=== PATIENT | male | born 1970 | race Caucasian/White ===

== ENCOUNTER 2017-03-17 15:26 | Emergency (ER) | payer OTHER, BC ==
--- NOTE | 2017-03-17 17:48 | EDM.PDOC ---
ED HPI GENERAL MEDICAL PROBLEM - General Chief Complaint: Lower Extremity Injury/Pain Stated Complaint: HURT RT ANKLE Time Seen by Provider: 03/17/17 17:43 Source of Information: Reports: Patient - History of Present Illness INITIAL COMMENTS - FREE TEXT/NARRATIVE: HISTORY AND PHYSICAL: History of present illness: [Patient presents with history of a fall off a ladder straight down to his feet complains of right ankle pain 8 out of 10 with weightbearing 1 out of 10 with nonweightbearing No fever nausea vomiting chills sweats no head injury or loss of consciousness no other injury History of diabetes on insulin Review of systems: As per history of present illness and below otherwise all systems reviewed and negative. Past medical history: As per history of present illness and as reviewed below otherwise noncontributory. Surgical history: As per history of present illness and as reviewed below otherwise noncontributory. Social history: No reported history of drug or alcohol abuse. Family history: As per history of present illness and as reviewed below otherwise noncontributory. Physical exam: HEENT: Atraumatic, normocephalic, pupils reactive, negative for conjunctival pallor or scleral icterus, mucous membranes moist, throat clear, neck supple, nontender, trachea midline. Lungs: Clear to auscultation, breath sounds equal bilaterally, chest nontender. Heart: S1S2, regular, negative for clicks, rubs, or JVD. Abdomen: Soft, nondistended, nontender. Negative for masses or hepatosplenomegaly. Negative for costovertebral tenderness. Pelvis: Stable nontender. Genitourinary: Deferred. Rectal: Deferred. Extremities: Atraumatic, negative for cords or calf pain. Neurovascular unremarkable. Neuro: Awake, alert, oriented. Cranial nerves II through XII unremarkable. Cerebellum unremarkable. Motor and sensory unremarkable throughout. Exam nonfocal. Right lower extremity mild to moderate swelling entirely neurovascularly intact pulses 2+ bruising around the ankle wave bruising at this time Diagnostics: []Right ankle 3 views Right foot 3 views Therapeutics: []CAM boot crutches nonweightbearing Discussed with Dr. Rust podiatry he'll see the patient in the office and redirected treatment and/ or calf consideration etc. have spoken with Dr. Mays LC him in his office initially patient will go directly over the Dr. Casper's office and redirected from there Impression: [Right calcaneus fracture comminuted with intra-articular involvement No open lesion Neurovascularly intact] Definitive disposition and diagnosis as appropriate pending reevaluation and review of above. right ankle Pain Score (Numeric/FACES): 6 - Related Data Allergies Allergy/AdvReac Type Severity Reaction Status Date / Time No Known Allergies Allergy Verified 03/17/17 16:09 Home Meds: Home Meds Insulin Npl/Insulin Lispro [Humalog Mix 75-25 Kwikpen] 1 unit SUBCUT ASDIRECTED 03/17/17 [History] Levothyroxine 3 mcg PO DAILY 03/17/17 [History] Rosuvastatin Calcium [Crestor] 1 tab PO DAILY 03/17/17 [History] Past Medical History Cardiovascular History: Reports: High Cholesterol Endocrine/Metabolic History: Reports: Diabetes, Type II, Hypothyroidism - Infectious Disease History Infectious Disease History: Reports: Chicken Pox - Past Surgical History Endocrine Surgical History: Reports: Other (See Below) Other Endocrine Surgeries/Procedures: abcess on stomach Social & Family History - Family History Family Medical History: Noncontributory - Tobacco Use Smoking Status *Q: Never Smoker - Alcohol Use Days Per Week of Alcohol Use: 1 Number of Drinks Per Day: 5 Total Drinks Per Week: 5 - Recreational Drug Use Recreational Drug Use: No Review of Systems - Review of Systems Review Of Systems: ROS reveals no pertinent complaints other than HPI. ED EXAM, GENERAL - Physical Exam Exam: See Below Course - Vital Signs Last Recorded V/S: Last Vital Signs Temp 97.5 F 03/17/17 16:12 Pulse 87 03/17/17 16:12 Resp 18 03/17/17 16:12 BP 158/98 H 03/17/17 16:12 Pulse Ox 99 03/17/17 16:12 - Orders/Labs/Meds Orders: Active Orders 24 hr Category Date Time Status Ankle Min 3V Rt [CR] Stat Exams 03/17/17 16:17 Taken Foot Comp Min 3V Rt [CR] Stat Exams 03/17/17 16:17 Taken Departure - Departure Time of Disposition: 17:45 Disposition: DC/Tfer to Other 70 Condition: Good Clinical Impression: Calcaneus fracture, right - Discharge Information Referrals: PCP,None [Primary Care Provider] - Additional Instructions: Patient discharged/transferred directly to Dr. Olmedo' office proceed directly over to the [facility] where Dr. rust is expecting you Being temporarily being placed in a walking boot do not put weight on the boot stepped directly on your foot Crutches and nonweightbearing Again proceed directly over Dr. Rust's office as he is expecting you and he will redirect treatment from there - My Orders Last 24 Hours: My Active Orders 03/17/17 16:17 Ankle Min 3V Rt [CR] Stat Foot Comp Min 3V Rt [CR] Stat - Assessment/Plan Last 24 Hours: My Active Orders 03/17/17 16:17 Ankle Min 3V Rt [CR] Stat Foot Comp Min 3V Rt [CR] Stat
--- NOTE | 2017-03-18 15:12 | CR ---
EXAM DATE: 03/17/17 PATIENT'S AGE: 47 Patient: BENTLEY RAMIREZ Facility: [place], [place] Site . Site : 1970 Study: XRay Extremity Right foot [id number] 4:42:58 PM Ordering Physician: Doctor Ireland Final Report: Indication: Fall. Technique: Right foot three views. Comparison: Right ankle same day. Findings: There is a comminuted mildly impacted intra-articular fracture of the calcaneus. No additional fracture demonstrated. Degenerative changes of the tibiotalar joint and 1st metatarsophalangeal joint. Calcaneal enthesopathy. Impression: Comminuted mildly impacted intra-articular fracture of the calcaneus. Dictated by Alvino Candelario MD @ 03/17/2017 5:03:05 PM Dictated by: Alvino Candelario MD @ 03/17/2017 17:03:14 (Electronic Signature) Report Signed by Proxy. SOPHIA
--- NOTE | 2017-03-18 15:12 | CR ---
EXAM DATE: 03/17/17 PATIENT'S AGE: 47 Patient: BENTLEY RAMIREZ Facility: [place], [place] Site . Site : 1970 Study: XRay Extremity Right ankle [id number]/18/[id number] 4:43:23 PM Ordering Physician: Doctor Ireland Final Report: Indication: Fall. Technique: Right ankle three views. Comparison: Right foot same day. Findings: There is a comminuted mildly impacted intra-articular fracture of the calcaneus. No additional fracture demonstrated. Degenerative changes of the tibiotalar joint. Soft tissue swelling about the ankle. Impression: Comminuted mildly impacted intra-articular fracture of the calcaneus. Dictated by Alvino Candelario MD @ 03/17/2017 5:04:31 PM Dictated by: Alvino Candelario MD @ 03/17/2017 17:04:42 (Electronic Signature) Report Signed by Proxy. SOPHIA
== END 2017-03-17 18:00 | disposition other institution (70) ==
LOC: MW.ED 15:26
DX: S92.061A Displaced intraarticular fracture of right calcaneus, initial encounter for closed fracture (principal); E11.9 Type 2 diabetes mellitus without complications; E78.00 Pure hypercholesterolemia, unspecified; Z79.4 Long term (current) use of insulin; Z79.899 Other long term (current) drug therapy; W11.XXXA Fall on and from ladder, initial encounter
CPT/HCPCS: 73610-26-RT; 73610-RT; 73630-26-RT; 73630-RT; 99283

== ENCOUNTER 2017-04-04 11:21 | Observation (INO) | payer OTHER, BC ==
[~2017-04-04 11:21] MED LIST: Bupivacaine 0.5% 30 ML SDV ONE; Lactated Ringers 1,000 ML IV SCH; Lidocaine 1% 20 ML MDV ONE
[2017-04-04] MEDS ORDERED: ceFAZolin 2 GM in Premix Bag 1 BAG IV ONE (11:24)
[2017-04-04] MEDS ORDERED: Dexamethasone 4 MG/ML 5 ML MDV ONE (11:36)
[2017-04-04] MEDS ORDERED: Ondansetron 4 MG/2 ML SDV ONE (11:36)
[2017-04-04] MEDS ORDERED: Midazolam 1 MG/ML 2 ML SDV ONE (11:36)
[2017-04-04] MEDS ORDERED: Propofol 200 MG/20 ML SDV ONE ×2 (11:36→16:32)
[2017-04-04] MEDS ORDERED: diphenhydrAMINE 50 MG/ML SDV ONE (11:36)
[2017-04-04] MEDS ORDERED: fentaNYL 250 MCG/5 ML SDV ONE (11:37)
--- NOTE | 2017-04-04 12:19 | PCM.PREANE ---
Preanesthetic Assessment - Anesthesia/Transfusion/Family Hx Anesthesia History: Prior Anesthesia Without Reaction Family History of Anesthesia Reaction: No Transfusion History: No Prior Transfusion(s) - Review of Systems General: No Symptoms Pulmonary: No Symptoms Cardiovascular: No Symptoms Gastrointestinal: No Symptoms Neurological: No Symptoms Other: Reports: None - Physical Assessment NPO Status Date: 04/03/17 O2 Sat by Pulse Oximetry: 95 Respiratory Rate: 16 Vital Signs: Last Vital Signs Temp 37.2 C 04/04/17 11:45 Pulse 90 04/04/17 11:45 Resp 16 04/04/17 11:45 BP 126/76 04/04/17 11:45 Pulse Ox 95 04/04/17 11:45 Height: 1.78 m Weight: 129.274 kg ASA Class: 3 Airway Class: Mallampati = 1 Dentition: Reports: Normal Dentition ROM/Head Extension: Full Lungs: Clear to Auscultation, Normal Respiratory Effort Cardiovascular: Regular Rate, Regular Rhythm - Allergies Allergies/Adverse Reactions: Allergies Allergy/AdvReac Type Severity Reaction Status Date / Time No Known Allergies Allergy Verified 03/17/17 16:09 - Anesthesia Plan Pre-Op Medication Ordered: None - Acknowledgements Anesthesia Type Planned: General Anesthesia Pt an Appropriate Candidate for the Planned Anesthesia: Yes Alternatives and Risks of Anesthesia Discussed w Pt/Guardian: Yes Pt/Guardian Understands and Agrees with Anesthesia Plan: Yes Additional Comments: PMH: DM1 on basal insulin pump, gets boluses of reg insulin with meals. glucose 127 at 1215. HTN, HLD, thyroid replacement. Off seizure meds x 3 years. Will check glucose during surgery hourly and add low glucose infusion as needed. PreAnesthesia Questionnaire Cardiovascular History: Reports: High Cholesterol Musculoskeletal History: Reports: Other (See Below) Other Musculoskeletal History: presently has fx rt foot Neurological History: Reports: Seizure Endocrine/Metabolic History: Reports: Diabetes, Type I, Hypothyroidism - Infectious Disease History Infectious Disease History: Reports: Chicken Pox - Past Surgical History Head Surgeries/Procedures: Reports: None Male Surgical History: Reports: Other (See Below) Other Male Surgeries/Procedures: hx prostate bx Endocrine Surgical History: Dermatological Surgical History: Reports: Other (See Below) - SUBSTANCE USE Smoking Status *Q: Never Smoker Days Per Week of Alcohol Use: 1 Number of Drinks Per Day: 5 Total Drinks Per Week: 5 Recreational Drug Use History: No - HOME MEDS Home Medications: Home Meds Insulin Npl/Insulin Lispro [Humalog Mix 75-25 Kwikpen] 1 unit SUBCUT ASDIRECTED 03/17/17 [History] Rosuvastatin Calcium [Crestor] 40 mg PO DAILY 03/17/17 [History] Aspirin [[place] Aspirin] 81 mg PO DAILY 04/03/17 [History] Levothyroxine Sodium 300 mcg PO DAILY 04/03/17 [History] Multivitamin [Multivitamins] 1 tab PO BEDTIME 04/03/17 [History] - CURRENT (IN HOUSE) MEDS Current Meds: Current Medications Lactated Ringer's (Ringers, Lactated) 1,000 mls @ 100 mls/hr IV ASDIRECTED TRISTAN Discontinued Medications Bupivacaine HCl (Marcaine 0.5%) Confirm Administered Dose 30 ml .ROUTE .STK-MED ONE Stop: 04/04/17 07:22 Dexamethasone (Dexamethasone) Confirm Administered Dose 20 mg .ROUTE .STK-MED ONE Stop: 04/04/17 11:37 Diphenhydramine HCl (Benadryl) Confirm Administered Dose 50 mg .ROUTE .STK-MED ONE Stop: 04/04/17 11:37 Fentanyl (Sublimaze) Confirm Administered Dose 250 mcg .ROUTE .STK-MED ONE Stop: 04/04/17 11:38 Cefazolin Sodium/Dextrose 2 gm (/ Premix) 50 mls @ 100 mls/hr IV ONETIME ONE Stop: 04/04/17 11:53 Lidocaine HCl (Xylocaine 1%) Confirm Administered Dose 20 ml .ROUTE .STK-MED ONE Stop: 04/04/17 07:22 Midazolam HCl (Versed 1 Mg/Ml) Confirm Administered Dose 2 mg .ROUTE .STK-MED ONE Stop: 04/04/17 11:37 Ondansetron HCl (Zofran) Confirm Administered Dose 4 mg .ROUTE .STK-MED ONE Stop: 04/04/17 11:37 Propofol (Diprivan 20 Ml) Confirm Administered Dose 200 mg .ROUTE .STK-MED ONE Stop: 04/04/17 11:37
[2017-04-04] MEDS ORDERED: Succinylcholine/Normal Saline 200 MG/10 ML Syringe ONE (12:48)
[2017-04-04] MEDS ORDERED: Rocuronium 10 MG/ML 10 ML Syringe ONE (12:48)
--- NOTE | 2017-04-04 13:53 | PN ---
CONTINUATION: In continuing with labs, PTT was 23 on 03/27/2017. Prothrombin time 8.7, INR 0.9. White blood cell 8.0, red blood cells 5.17, hemoglobin 15.1, hematocrit 42.1, platelets 308. Urinalysis was unremarkable. Glucose 75, creatinine 0.96, BUN 21.0, sodium 140.1, potassium 4.2, chloride 101.3, CO2 of 26.1, calcium 9.10. Also the patient's most recent glucose check done on last treatment was approximately 100. Chest x-ray showed no radiographic evidence of an acute cardiopulmonary process. EKG showed sinus rhythm, rapid. The patient presents for open reduction with internal fixation as a surgery for a displaced intra-articular calcaneal fracture on the right foot today. No contraindications to surgery noted. No guarantees were given or implied and an effort has been made to thoroughly discuss likelihood and the potential complications with the patient and with his . ANAYA / AMRITA /[id number]
[2017-04-04] MEDS ORDERED: HYDROmorphone 2 MG/ML Syringe ONE ×2 (14:18→17:13)
[2017-04-04] MEDS ORDERED: ceFAZolin 1 GM Vial ONE (18:43)
--- NOTE | 2017-04-04 20:21 | PCM.OPNOTE ---
- General Post-Op/Procedure Note Date of Surgery/Procedure: 04/04/17 Operative Procedure(s): ORIF calcanceal fracture right foot Findings: consistent with diagnosis Pre Op Diagnosis: displaced intraarticular calcaneal fracture right foot Post-Op Diagnosis: displaced intraarticular calcaneal fracture right foot Anesthesia Technique: General LMA Primary Surgeon: Alexander Red Pathology: none EBL in mLs: 200 Surgical Drain/Tube Type: Franca Complications: none Condition: Good Free Text/Narrative:: materials: 3-0 nylon, 4-0 prolene, 40 vicryl, Amniox Clarix regenerative wound matrix, [place] calcaneal plate, Hilary locking and nonlocking screws x 8 injectables: 10 ml 0.5% Marcaine plain
[2017-04-04] MEDS ORDERED: fentaNYL 100 MCG/2 ML SDV IVPUSH PRN (20:22)
[2017-04-04] MEDS ORDERED: Multivitamins with Iron/Calcium/Folic Acid/Minerals Tab PO SCH (21:00)
[2017-04-04] MEDS ORDERED: Insulin Lispro Protamine/Lispro 75-25 100 Units/ML 3 ML KwikPen SUBCUT SCH (21:00)
[2017-04-04] MEDS ORDERED: Rosuvastatin 10 MG Tab PO SCH (21:00)
[2017-04-04] MEDS ORDERED: Ondansetron 4 MG/2 ML SDV IVPUSH PRN (21:12)
[2017-04-04] MEDS ORDERED: Magnesium Hydroxide 400 MG/5 ML Susp 30 ML Cup PO PRN (21:12)
[2017-04-04] MEDS ORDERED: Acetaminophen 325 MG Tab PO PRN (21:12)
[2017-04-04] MEDS ORDERED: Ondansetron 4 MG Tab.DIS PO PRN (21:12)
--- NOTE | 2017-04-04 21:23 | PCM.HP ---
H&P History of Present Illness - General Date of Service: 04/04/17 Admit Problem/Dx: Admission Diagnosis/Problem Admission Diagnosis/Problem Fracture of calcaneus Source of Information: Patient, Provider History Limitations: Reports: No Limitations - History of Present Illness Initial Comments - Free Text/Narative: 47 yo male admitted 04/04/16 for calcaneal fracture post op with pmh of type I diabetes, htn, hyperlipidemia, hypothyroidism and bph. Patient had a calcaneal fx repaired this evening by Dr. Red. He will need to be observed overnight and Dr. Red will see him tomorrow evening. Patient seen in PACU. Denies any pain at this time. Denies chest pain, palpitations, sob, nausea, vomiting, diarrhea. Otherwise doing well. He is a type I diabetic diagnosed in the early . He does have an insulin pump that he uses to regulate his sugars. He also has a history of htn, hyperlipidemia, and hypothyroidism that he states has been well controlled. Will admit for observation. He is non weightbearing. - Related Data Allergies/Adverse Reactions: Allergies Allergy/AdvReac Type Severity Reaction Status Date / Time No Known Allergies Allergy Verified 03/17/17 16:09 Home Medications: Home Meds Insulin Npl/Insulin Lispro [Humalog Mix 75-25 Kwikpen] 1 unit SUBCUT ASDIRECTED 03/17/17 [History] Rosuvastatin Calcium [Crestor] 40 mg PO DAILY 03/17/17 [History] Aspirin [[place] Aspirin] 81 mg PO DAILY 04/03/17 [History] Levothyroxine Sodium 300 mcg PO DAILY 04/03/17 [History] Multivitamin [Multivitamins] 1 tab PO BEDTIME 04/03/17 [History] Past Medical History Cardiovascular History: Reports: High Cholesterol Musculoskeletal History: Reports: Other (See Below) Other Musculoskeletal History: presently has fx rt foot Neurological History: Reports: Seizure Endocrine/Metabolic History: Reports: Diabetes, Type I, Hypothyroidism - Infectious Disease History Infectious Disease History: Reports: Chicken Pox - Past Surgical History Head Surgeries/Procedures: Reports: None Male Surgical History: Reports: Other (See Below) Other Male Surgeries/Procedures: hx prostate bx Endocrine Surgical History: Dermatological Surgical History: Reports: Other (See Below) Social & Family History - Family History Family Medical History: Noncontributory - Tobacco Use Smoking Status *Q: Never Smoker - Alcohol Use Days Per Week of Alcohol Use: 1 Number of Drinks Per Day: 5 Total Drinks Per Week: 5 - Recreational Drug Use Recreational Drug Use: No Drug Use in Last 12 Months: No H&P Review of Systems - Review of Systems: Review Of Systems: See Below General: Denies: Fever, Chills, Weakness HEENT: Denies: Headaches, Sore Throat Pulmonary: Denies: Shortness of Breath, Wheezing, Cough, Sputum Cardiovascular: Denies: Chest Pain, Palpitations, Edema Gastrointestinal: Denies: Abdominal Pain, Black Stool, Bloody Stool, Diarrhea, Nausea, Vomiting Genitourinary: Denies: Dysuria, Hematuria Musculoskeletal: Reports: Foot Pain. Denies: Neck Pain, Leg Pain Psychiatric: Denies: Confusion Neurological: Denies: Confusion, Dizziness, Headache Hematologic/Lymphatic: Denies: Anemia Exam - Exam Exam: See Below - Vital Signs Vital Signs: Last Vital Signs Temp 99.0 F 04/04/17 11:45 Pulse 90 04/04/17 11:45 Resp 16 04/04/17 12:19 BP 126/76 04/04/17 11:45 Pulse Ox 95 04/04/17 12:19 Weight: 129.274 kg - Exam Quality Assessment: Supplemental Oxygen, DVT Prophylaxis General: Alert, Oriented, Cooperative HEENT: Conjunctiva Clear, EACs Clear, EOMI, Hearing Intact, Mucosa Moist & [place] , Nares Patent, Normal Nasal Septum, Posterior Pharynx Clear, PERRLA Neck: Supple, Trachea Midline, 2 Lungs: Clear to Auscultation, Normal Respiratory Effort Cardiovascular: Regular Rate, Regular Rhythm, Normal S1, Normal S2 GI/Abdominal Exam: Normal Bowel Sounds, Soft, Non-Tender, No Organomegaly, No Distention, No Abnormal Bruit, No Mass Back Exam: Normal Inspection Extremities: Normal Inspection, Normal Range of Motion, Non-Tender, No Pedal Edema, Normal Capillary Refill, Other (Post surgical dressing in place to right lower extremity) Peripheral Pulses: 2+: Radial (L), Radial (R), Posterior Tibial (L), Dorsalis Pedis (L) Skin: Warm, Dry, Intact Neurological: Cranial Nerves Intact, Reflexes Equal Bilateral Neuro Extensive - Mental Status: Alert, Oriented x3, Normal Mood/Affect, Normal Cognition Neuro Extensive - Motor, Sensory, Reflexes: CN II-XII Intact Psychiatric: Alert, Normal Affect, Normal Mood - Patient Data Lab Results Last 24 hrs: Laboratory Results - last 24 hr 04/04/17 04/04/17 04/04/17 Range/Units 14:44 15:46 16:55 POC Glucose 90 130 H 193 H (60-110) mg/dL 04/04/17 04/04/17 04/04/17 Range/Units 18:15 19:59 21:02 POC Glucose 224 H 268 H 278 H (60-110) mg/dL *Q Meaningful Use (ADM) - VTE *Q VTE Criteria *Q: - Stroke *Q Stroke Criteria *Q: - AMI *Q AMI Criteria *Q: - Problem List (1) Type I diabetes mellitus SNOMED Code(s): 55941136 ICD Code: E10.9 - TYPE 1 DIABETES MELLITUS WITHOUT COMPLICATIONS Status: Chronic Priority: Low Current Visit: Yes Qualifiers: Diabetes mellitus complication status: without complication Qualified Code( s): E10.9 - Type 1 diabetes mellitus without complications (2) HTN (hypertension) SNOMED Code(s): 82715076 ICD Code: I10 - ESSENTIAL (PRIMARY) HYPERTENSION Status: Chronic Priority : Low Current Visit: Yes Qualifiers: Hypertension type: essential hypertension Qualified Code(s): I10 - Essential (primary) hypertension (3) Hyperlipidemia SNOMED Code(s): 91626874 ICD Code: E78.5 - HYPERLIPIDEMIA, UNSPECIFIED Status: Chronic Priority: Low Current Visit: Yes Qualifiers: Hyperlipidemia type: unspecified Qualified Code(s): E78.5 - Hyperlipidemia , unspecified (4) Hypothyroidism SNOMED Code(s): 49966806 ICD Code: E03.9 - HYPOTHYROIDISM, UNSPECIFIED Status: Chronic Priority: Low Current Visit: Yes Qualifiers: Hypothyroidism type: unspecified Qualified Code(s): E03.9 - Hypothyroidism , unspecified (5) Calcaneus fracture, right SNOMED Code(s): 988594202 ICD Code: S92.001A - UNSP FRACTURE OF RIGHT CALCANEUS, INIT FOR CLOS FX Status: Acute Priority: High Current Visit: Yes Qualifiers: Encounter type: initial encounter Fracture type: closed [place] Fracture Type: unspecified configuration Problem List Initiated/Reviewed/Updated: Yes Orders Last 24hrs: Active Orders 24 hr Category Date Time Status Patient Status [ADT] Routine ADT 04/04/17 21:12 Ordered Antiembolic Devices [RC] .Routine Care 04/04/17 11:25 Active Antiembolic Devices [RC] PER UNIT ROUTINE Care 04/04/17 21:17 Ordered Blood Glucose Check, Bedside [RC] TIDAC Care 04/04/17 20:58 Ordered Bradycardia-Neuroaxis [employer] [RC] ROUTINE Care 04/04/17 20:22 Active Hypertension-Neuroaxis [employer] [RC] ROUTINE Care 04/04/17 20:22 Active Hypotension-Neuroaxis [employer] [RC] ROUTINE Care 04/04/17 20:22 Active Intake and Output [RC] QSHIFT Care 04/04/17 21:15 Ordered Notify Provider Consults [RC] ASDIRECTED Care 04/04/17 21:17 Ordered Oxygen Therapy [RC] ASDIRECTED Care 04/04/17 20:22 Active Oxygen Therapy [RC] PRN Care 04/04/17 21:12 Ordered VTE/DVT Education [RC] PER UNIT ROUTINE Care 04/04/17 11:25 Active VTE/DVT Education [RC] PER UNIT ROUTINE Care 04/04/17 21:12 Ordered Verify Patient Consent Obtain [RC] ASDIRECTED Care 04/04/17 11:24 Active Vital Signs [RC] Q4H Care 04/04/17 21:12 Ordered Consult to Physician [CONS] Routine Cons 04/04/17 21:12 Ordered [place] [employer] Diet [DIET] Diet 04/05/17 Breakfast Ordered Fluoro>1Hr [CR] Routine Exams 04/04/17 14:20 Taken BMP [BASIC METABOLIC PANEL,BMP] [CHEM] AM Lab 04/06/17 05:11 Ordered BMP [BASIC METABOLIC PANEL,BMP] [CHEM] AM Lab 04/07/17 05:11 Ordered CBC WITH AUTO DIFF [HEME] AM Lab 04/05/17 05:11 Ordered CBC WITH AUTO DIFF [HEME] AM Lab 04/06/17 05:11 Ordered Acetaminophen [Tylenol] Med 04/04/17 21:12 Ordered 650 mg PO Q4H PRN Acetaminophen/HYDROcodone [[place] 325-5 MG] Med 04/04/17 21:12 Ordered 2 tab PO Q4H PRN Aspirin [Halfprin] Med 04/05/17 09:00 Ordered 81 mg PO DAILY HYDROmorphone [Dilaudid] Med 04/04/17 21:12 Ordered 0.5 mg IVPUSH Q2H PRN Insulin Lispro Prot/Lispro [HumaLOG Mix 75-25] Med 04/04/17 21:00 Ordered 1 unit SUBCUT ASDIRECTED Lactated Ringers [Ringers, Lactated] 1,000 ml Med 04/04/17 08:15 Active IV ASDIRECTED Levothyroxine Sodium [Levothyroxine Sodium] Med 04/05/17 09:00 Ordered 300 mcg PO DAILY Magnesium Hydroxide [Milk of Magnesia] Med 04/04/17 21:12 Ordered 30 ml PO Q12H PRN Multivitamin [Multivitamins] Med 04/04/17 21:00 Ordered 1 tab PO BEDTIME Ondansetron [Zofran ODT] Med 04/04/17 21:12 Ordered 4 mg PO Q4H PRN Ondansetron [Zofran] Med 04/04/17 21:12 Ordered 4 mg IVPUSH Q4H PRN Rosuvastatin Calcium [Crestor] Med 04/05/17 09:00 Ordered 40 mg PO DAILY fentaNYL [Sublimaze] Med 04/04/17 20:22 Active 50 mcg IVPUSH Q5M PRN DVT/VTE Prophylaxis Reflex [OM.PC] Routine Oth 04/04/17 11:24 Ordered Sequential Compression Device [OM.PC] Per Unit Routine Oth 04/04/17 21:15 Ordered Resuscitation Status Routine Resus Stat 04/04/17 11:24 Ordered Medication Orders Aspirin (Halfprin) 81 mg PO DAILY TRISTAN Fentanyl (Sublimaze) 50 mcg IVPUSH Q5M PRN PRN Reason: Pain (severe 7-10) Stop: 04/04/17 23:59 Lactated Ringer's (Ringers, Lactated) 1,000 mls @ 100 mls/hr IV ASDIRECTED TRISTAN Insulin Lispro Protam/Lispro Human (Humalog Mix 75-25) 1 unit SUBCUT ASDIRECTED [facility] Non-Formulary Medication (Levothyroxine Sodium [Levothyroxine Sodium]) 300 mcg PO DAILY [facility] Non-Formulary Medication (Multivitamin [Multivitamins]) 1 tab PO BEDTIME TRISTAN Non-Formulary Medication (Rosuvastatin Calcium [Crestor]) 40 mg PO DAILY [facility] Assessment/Plan Comment:: 47 yo male s/p right calcaneal fx repair with pmh of type I diabetes, htn, hld, hypothyroidism. Calcaneal fx: Dr. Red surgeon. Patient is nonweight bearing. Will have dressing changed by Dr. Red tomorrow evening. Diabetes: Has been controlled. Will have patient resume his normal pump. Htn/Hld: Stable restart home meds. Hypothyroid: Stable restart home meds. VTE: post-surgical SCD Dispo: 1-2 days pending.
--- NOTE | 2017-04-04 21:33 | PCM.POSTAN ---
POST ANESTHESIA ASSESSMENT - MENTAL STATUS Mental Status: Alert, Oriented - VITAL SIGNS Pulse Rate: 108 SaO2: 96 Resp Rate: 14 Blood Pressure: 118/70 Temperature: 98.0 C - RESPIRATORY Respiratory Status: Respiratory Rate WNL, Airway Patent, O2 Saturation Stable, Supplemental Oxygen (O2 nasal cannula) - CARDIOVASCULAR CV Status: Pulse Rate WNL, Blood Pressure Stable - GASTROINTESTINAL GI Status: No Symptoms - PAIN Pain Score: 2 - POST OP HYDRATION Hydration Status: Adequate & Stable
--- NOTE | 2017-04-05 00:40 | OR ---
SURGEON: Alexander Red DPM DATE OF PROCEDURE: 04/04/2017 PREOPERATIVE DIAGNOSIS: Displaced intraarticular calcaneal fracture of the right foot. POSTOPERATIVE DIAGNOSIS: Displaced intraarticular calcaneal fracture of the right foot. OPERATIVE PROCEDURE: Open reduction with internal fixation of calcaneal fracture, right foot. ANESTHESIA: General LMA. HEMOSTASIS: A thigh tourniquet inflated to a pressure of 300 mmHg after an Esmarch bandage exsanguination. TOURNIQUET TIME: Tourniquet time was in two parts, 116 minutes, followed by deflation of the tourniquet for approximately 1 hour and 15 minutes, followed by reinflation for 113 minutes. MATERIALS: [employer] Clarix Cord Regenerative Matrix 3x4 cm, [place] Calcaneus plate, 12 holes, 54 mm length x 1 Hilary 3.5 mm locking screws, T10, 38 mm length x 1, 42 mm length x 1 [place]thington 3.5 mm non-locking screws, T10, 34 mm length x 1, 38 mm length x 3, 42 mm length x 1, 44 mm length x 1 3-0 nylon, 4-0 Prolene, 4-0 Vicryl, INJECTABLES: 10 mL of 0.5% Marcaine plain. PATHOLOGY: None. COMPLICATIONS: None. JUSTIFICATION FOR THE PROCEDURE: The patient was injured on March 17 when he fell from a ladder, which was in the process of falling and he jumped outward and fell down approximately 7 to 8 feet, was transported to the emergency room here in [place] where he was diagnosed with a calcaneal fracture of the right foot. Dr. Finch contacted me from the emergency room and I agreed to see the patient and had the patient brought directly to my office from the emergency room that evening. The patient was placed on crutches and dispensed and placed into a tall walking boot in the emergency room and this is how he presented to me in my office. Due to the edema, which had already become quite significant at that time, I deferred surgical treatment for nearly 3 weeks until today. In the intervening period, the patient was cleared for surgery with no contraindications and I also had patient undergo a lumbar spine x-ray which was negative for fracture as well as contralateral x-ray of his left heel to compare the calcaneus bone and the subtalar joint with the fractured right heel. Additionally, I ordered and the patient underwent a CT scan of the right lower extremity and this was very revealing for Garrison type 2A fracture based on strict interpretation on the coronal and axial views. However, due to fragmentation, this fracture is considered a Garrison type 4. I discussed with the patient and his in detail in my office 2 days ago, the need for surgery, which we all agreed was justified in this case as well as the numerous risks of surgery including, but not limited to wound dehiscence, potential infection up to and including osteomyelitis of the calcaneus and the lower extremity, sural neuritis, sural nerve damage, subtalar joint arthritis which I advised should be considered as inevitable with or without surgery, and related pain. The patient understands that additional surgery may at some point be required, particularly if he experiences painful subtalar joint arthritis. This could lead to further surgery, which could include removal of the hardware being placed and subtalar joint fusion. The patient consented for surgery in writing prior to today's surgery and this was witnessed and placed in the patient's chart. No guarantees have been expressed or implied. DESCRIPTION OF PROCEDURE: The patient was brought to the operating room and placed on the operating table in a supine position at which time anesthesia was induced and the patient was rotated and secured in a lateral decubitus position with the right foot on the superior aspect. The patient was scrubbed and draped in the usual aseptic manner. An incision was planned consisting of a lateral extensile incision line on the lateral side of the right rear foot. The lower extremity was exsanguinated with an Esmarch bandage and the tourniquet was inflated after taking several preoperative x-ray views with C-arm fluoroscopy. Incision was made and carried down directly to bone with care being taken to avoid any neurovascular structures that were visible. The carrying of the incision down to bone was necessary to ensure the highest probability of a viable flap. Dissection was carried superiorly and distally as necessary to expose the lateral calcaneus and the subtalar joint area and extended nearly to the calcaneal cuboid joint. A Hilary calcaneal plate was selected based on fit and set aside and a TransFix screw was placed from lateral to medial exiting via the stab incision on the medial aspect of the right heel. This was necessary to position the posterior tubercle of the calcaneus in a proper position and reduce the varus of the heel due to the fracture as well as to reduce the fragments that originated at the posterior facet. The plate was placed and fixated with olive wire. Two screw holes were made. One screw was inserted. Fluoroscopy and direct examination then confirmed that further plate bending would be necessary. At this time, I removed the hardware, deflated the tourniquet, and proceeded without hemostasis for the next hour and 15 to 20 minutes. After using plate benders and adjusting the plate as needed, the plate was refitted and the screws were reinserted with pre-drilling done in every case followed by measurement and insertion of the screws either locking or nonlocking. Intraoperative fluoroscopy was utilized throughout this portion of the surgery. At the end, all screws were tightened and postoperative x-rays were taken using the C- arm. Once fixation was judged to be achieved as desired, the tourniquet was reinflated and closure commenced. However, prior to closure, the [employer] Clarix Regenerative wound matrix was placed over the calcaneal plate and was secured by suturing it with 4-0 Vicryl suture to the flap over the calcaneus. A Bellbrook drain was placed just prior to closure and that this drain will be removed by me either tomorrow or the day after tomorrow. The flap was then closed using a combination of suture techniques primarily the Donati-Allgower technique as well as horizontal mattress sutures as necessary. 10 mL of 0.5% Marcaine plain was then infiltrated about the site. The site was then prepared for dressings consisting of Betadine-soaked Xeroform gauze, followed by 4 x 4 fluff gauze, Kerlix roll, stockinette, cast padding, and placement of a fiberglass posterior splint which was then secured with multiple Domenico bandages. The tourniquet was deflated just prior to placement of the splint. The patient tolerated the procedure and the anesthesia without complication. However, due to the patient's diabetic condition as well as the length of the procedure and the amount of narcotics the patient has been given, it is determined that he will remain for observation overnight. I will follow the patient while he is in- house. I will see him tomorrow and I am in touch with his as needed. Both the patient and his have my cell phone at any time if they sue JULIEN / AMRITA COUGHLIN: 04/04/2017 20:39:31 /[id number] SOPHIA
[2017-04-05] MEDS: Acetaminophen/HYDROcodone 325-5 MG Tab PO PRN ×4 (01:18→16:07)
[2017-04-05] MEDS: HYDROmorphone 2 MG/ML SDV IVPUSH PRN ×2 (03:30→09:25)
--- NOTE | 2017-04-05 07:04 | PCM.PN ---
- General Info Date of Service: 04/05/17 Admission Dx/Problem (Free Text): Admission Diagnosis/Problem Admission Diagnosis/Problem Fracture of calcaneus Subjective Update: Feeling well this morning. Some numbness to right foot. No nausea/vomiting. Pain controlled. Denies chest pain, palpitations, sob, syncopal episodes. - Review of Systems General: Denies: Fever, Weakness HEENT: Denies: Headaches, Visual Changes Pulmonary: Denies: Shortness of Breath, Cough, Sputum Cardiovascular: Denies: Chest Pain, Palpitations Gastrointestinal: Denies: Abdominal Pain, Nausea, Vomiting Genitourinary: Denies: Dysuria Musculoskeletal: Reports: Leg Pain. Denies: Neck Pain Skin: Denies: Cyanosis Neurological: Denies: Confusion, Dizziness, Headache Psychiatric: Denies: Confusion - Patient Data Vitals - Most Recent: Last Vital Signs Temp 99.2 F 04/04/17 23:54 Pulse 18 L 04/04/17 23:54 Resp 19 04/04/17 23:54 BP 137/68 04/04/17 23:54 Pulse Ox 96 04/04/17 23:54 Weight - Most Recent: 129.274 kg I&O - Last 24 Hours: Intake & Output 04/04/17 04/05/17 04/05/17 22:59 06:59 14:59 Intake Total 1400 250 Output Total 1900 Balance 1400 -1650 Lab Results Last 24 Hours: Laboratory Results - last 24 hr 04/04/17 04/04/17 04/04/17 Range/Units 14:44 15:46 16:55 WBC (4.0-11.0) K/uL RBC (4.50-5.90) M/uL Hgb (13.0-17.0) g/dL Hct (38.0-50.0) % MCV (80.0-98.0) fL MCH (27.0-32.0) pg MCHC (31.0-37.0) g/dL RDW Std Deviation (28.0-62.0) fl RDW Coeff of Abdi (11.0-15.0) % Plt Count (150-400) K/uL MPV (7.40-12.00) fL Neut % (Auto) (48.0-80.0) % Lymph % (Auto) (16.0-40.0) % Haralson % (Auto) (0.0-15.0) % Eos % (Auto) (0.0-7.0) % Baso % (Auto) (0.0-1.5) % Neut # (Auto) (1.4-5.7) K/uL Lymph # (Auto) (0.6-2.4) K/uL Haralson # (Auto) (0.0-0.8) K/uL Eos # (Auto) (0.0-0.7) K/uL Baso # (Auto) (0.0-0.1) K/uL Nucleated RBC % /100WBC Nucleated RBCs # K/uL POC Glucose 90 130 H 193 H (60-110) mg/dL 04/04/17 04/04/17 04/04/17 Range/Units 18:15 19:59 21:02 WBC (4.0-11.0) K/uL RBC (4.50-5.90) M/uL Hgb (13.0-17.0) g/dL Hct (38.0-50.0) % MCV (80.0-98.0) fL MCH (27.0-32.0) pg MCHC (31.0-37.0) g/dL RDW Std Deviation (28.0-62.0) fl RDW Coeff of Abdi (11.0-15.0) % Plt Count (150-400) K/uL MPV (7.40-12.00) fL Neut % (Auto) (48.0-80.0) % Lymph % (Auto) (16.0-40.0) % Haralson % (Auto) (0.0-15.0) % Eos % (Auto) (0.0-7.0) % Baso % (Auto) (0.0-1.5) % Neut # (Auto) (1.4-5.7) K/uL Lymph # (Auto) (0.6-2.4) K/uL Haralson # (Auto) (0.0-0.8) K/uL Eos # (Auto) (0.0-0.7) K/uL Baso # (Auto) (0.0-0.1) K/uL Nucleated RBC % /100WBC Nucleated RBCs # K/uL POC Glucose 224 H 268 H 278 H (60-110) mg/dL 04/05/17 Range/Units 06:21 WBC 11.85 H (4.0-11.0) K/uL RBC 4.74 (4.50-5.90) M/uL Hgb 13.5 (13.0-17.0) g/dL Hct 40.2 (38.0-50.0) % MCV 84.8 (80.0-98.0) fL MCH 28.5 (27.0-32.0) pg MCHC 33.6 (31.0-37.0) g/dL RDW Std Deviation 40.0 (28.0-62.0) fl RDW Coeff of Abdi 13 (11.0-15.0) % Plt Count 246 (150-400) K/uL MPV 9.10 (7.40-12.00) fL Neut % (Auto) 78.1 (48.0-80.0) % Lymph % (Auto) 11.6 L (16.0-40.0) % Haralson % (Auto) 10.2 (0.0-15.0) % Eos % (Auto) 0.0 (0.0-7.0) % Baso % (Auto) 0.1 (0.0-1.5) % Neut # (Auto) 9.3 H (1.4-5.7) K/uL Lymph # (Auto) 1.4 (0.6-2.4) K/uL Haralson # (Auto) 1.2 H (0.0-0.8) K/uL Eos # (Auto) 0.0 (0.0-0.7) K/uL Baso # (Auto) 0.0 (0.0-0.1) K/uL Nucleated RBC % 0.0 /100WBC Nucleated RBCs # 0 K/uL POC Glucose (60-110) mg/dL Med Orders - Current: Current Medications Acetaminophen (Tylenol) 650 mg PO Q4H PRN PRN Reason: Pain (Mild 1-3)/fever Hydrocodone Bitart/Acetaminophen (Rumford 325-5 Mg) 2 tab PO Q4H PRN PRN Reason: Pain (moderate 4-6) Last Admin: 01/06/18 01:18 Dose: 2 tab Aspirin (Halfprin) 81 mg PO DAILY [facility] Hydromorphone HCl (Dilaudid) 0.5 mg IVPUSH Q2H PRN PRN Reason: Pain (severe 7-10) Last Admin: 04/05/17 03:30 Dose: 0.5 mg Lactated Ringer's (Ringers, Lactated) 1,000 mls @ 100 mls/hr IV ASDIRECTED [facility] Insulin Lispro Protam/Lispro Human (Humalog Mix 75-25) 1 unit SUBCUT ASDIRECTED [facility] Levothyroxine Sodium (Synthroid) 300 mcg PO DAILY [facility] Magnesium Hydroxide (Milk Of Magnesia) 30 ml PO Q12H PRN PRN Reason: Constipation Multivitamins/Minerals (Thera M Plus) 1 tab PO BEDTIME [facility] Last Admin: 04/04/17 22:36 Dose: 1 tab Ondansetron HCl (Zofran Odt) 4 mg PO Q4H PRN PRN Reason: nausea, able to take PO Ondansetron HCl (Zofran) 4 mg IVPUSH Q4H PRN PRN Reason: Nausea Rosuvastatin Calcium (Crestor) 40 mg PO BEDTIME [facility] Last Admin: 04/04/17 22:36 Dose: 40 mg Discontinued Medications Bupivacaine HCl (Marcaine 0.5%) Confirm Administered Dose 30 ml .ROUTE .STK-MED ONE Stop: 04/04/17 07:22 Cefazolin Sodium (Ancef) Confirm Administered Dose 2 gm .ROUTE .STK-MED ONE Stop: 04/04/17 18:44 Dexamethasone (Dexamethasone) Confirm Administered Dose 20 mg .ROUTE .STK-MED ONE Stop: 04/04/17 11:37 Diphenhydramine HCl (Benadryl) Confirm Administered Dose 50 mg .ROUTE .STK-MED ONE Stop: 04/04/17 11:37 Fentanyl (Sublimaze) Confirm Administered Dose 250 mcg .ROUTE .STK-MED ONE Stop: 04/04/17 11:38 Fentanyl (Sublimaze) 50 mcg IVPUSH Q5M PRN PRN Reason: Pain (severe 7-10) Stop: 04/04/17 23:59 Hydromorphone HCl (Dilaudid) Confirm Administered Dose 2 mg .ROUTE .STK-MED ONE Stop: 04/04/17 14:19 Hydromorphone HCl (Dilaudid) Confirm Administered Dose 2 mg .ROUTE .STK-MED ONE Stop: 04/04/17 17:14 Cefazolin Sodium/Dextrose 2 gm (/ Premix) 50 mls @ 100 mls/hr IV ONETIME ONE Stop: 04/04/17 11:53 Last Admin: 04/04/17 22:36 Dose: Not Given Lidocaine HCl (Xylocaine 1%) Confirm Administered Dose 20 ml .ROUTE .STK-MED ONE Stop: 04/04/17 07:22 Midazolam HCl (Versed 1 Mg/Ml) Confirm Administered Dose 2 mg .ROUTE .STK-MED ONE Stop: 04/04/17 11:37 Ondansetron HCl (Zofran) Confirm Administered Dose 4 mg .ROUTE .STK-MED ONE Stop: 04/04/17 11:37 Propofol (Diprivan 20 Ml) Confirm Administered Dose 200 mg .ROUTE .STK-MED ONE Stop: 04/04/17 11:37 Propofol (Diprivan 20 Ml) Confirm Administered Dose 200 mg .ROUTE .STK-MED ONE Stop: 04/04/17 16:33 Rocuronium [place] (Zemuron) Confirm Administered Dose 100 mg .ROUTE .STK-MED ONE Stop: 04/04/17 12:49 Succinylcholine Chloride (Succinylcholine In Ns Pf) Confirm Administered Dose 200 mg .ROUTE .STK-MED ONE Stop: 04/04/17 12:49 - Exam Quality Assessment: DVT Prophylaxis General: Alert, Oriented, Cooperative, No Acute Distress HEENT: Pupils Equal, Pupils Reactive, EOMI, Mucous Membr. Moist/Lillian Neck: Supple, Trachea Midline, No JVD Lungs: Clear to Auscultation, Normal Respiratory Effort Cardiovascular: Regular Rate, Regular Rhythm, No Murmurs GI/Abdominal Exam: Normal Bowel Sounds, Soft, Non-Tender, No Organomegaly, No Distention Back Exam: Normal Inspection Extremities: Normal Range of Motion, Non-Tender, No Pedal Edema, Normal Capillary Refill, Other (right lower leg in post operative bandages. Normal cap refill. Decreased sensation to touch. ) Peripheral Pulses: 2+: Radial (L), Radial (R), Posterior Tibial (L), Dorsalis Pedis (L) Skin: Warm, Dry, Intact Wound/Incisions: Healing Well Neurological: No New Focal Deficit Psy/Mental Status: Alert, Normal Affect, Normal Mood - Problem List & Annotations (1) Type I diabetes mellitus SNOMED Code(s): 58992899 Code(s): E10.9 - TYPE 1 DIABETES MELLITUS WITHOUT COMPLICATIONS Status: Chronic Priority: Low Current Visit: Yes Qualifiers: Diabetes mellitus complication status: without complication Qualified Code( s): E10.9 - Type 1 diabetes mellitus without complications (2) HTN (hypertension) SNOMED Code(s): 84679639 Code(s): I10 - ESSENTIAL (PRIMARY) HYPERTENSION Status: Chronic Priority : Low Current Visit: Yes Qualifiers: Hypertension type: essential hypertension Qualified Code(s): I10 - Essential (primary) hypertension (3) Hyperlipidemia SNOMED Code(s): 16090578 Code(s): E78.5 - HYPERLIPIDEMIA, UNSPECIFIED Status: Chronic Priority: Low Current Visit: Yes Qualifiers: Hyperlipidemia type: unspecified Qualified Code(s): E78.5 - Hyperlipidemia , unspecified (4) Hypothyroidism SNOMED Code(s): 14368562 Code(s): E03.9 - HYPOTHYROIDISM, UNSPECIFIED Status: Chronic Priority: Low Current Visit: Yes Qualifiers: Hypothyroidism type: unspecified Qualified Code(s): E03.9 - Hypothyroidism , unspecified (5) Calcaneus fracture, right SNOMED Code(s): 298610429 Code(s): S92.001A - UNSP FRACTURE OF RIGHT CALCANEUS, INIT FOR CLOS FX Status: Acute Priority: High Current Visit: Yes Qualifiers: Encounter type: initial encounter Fracture type: closed [place] Fracture Type: unspecified configuration - Problem List Review Problem List Initiated/Reviewed/Updated: Yes - My Orders Last 24 Hours: My Active Orders 04/04/17 20:58 Blood Glucose Check, Bedside [RC] TIDAC 04/04/17 21:00 Insulin Lispro Prot/Lispro [HumaLOG Mix 75-25] 1 unit SUBCUT ASDIRECTED Multivitamins w-Iron/Ca/FA/Min [Thera M Plus] 1 tab PO BEDTIME Rosuvastatin [Crestor] 40 mg PO BEDTIME 04/04/17 21:12 Patient Status [ADT] Routine Oxygen Therapy [RC] PRN VTE/DVT Education [RC] PER UNIT ROUTINE Vital Signs [RC] Q4H Consult to Physician [CONS] Routine Acetaminophen [Tylenol] 650 mg PO Q4H PRN Acetaminophen/HYDROcodone [Rumford 325-5 MG] 2 tab PO Q4H PRN HYDROmorphone [Dilaudid] 0.5 mg IVPUSH Q2H PRN Magnesium Hydroxide [Milk of Magnesia] 30 ml PO Q12H PRN Ondansetron [Zofran ODT] 4 mg PO Q4H PRN Ondansetron [Zofran] 4 mg IVPUSH Q4H PRN 04/04/17 21:15 Intake and Output [RC] Q12H Sequential Compression Device [OM.PC] Per Unit Routine 04/04/17 21:17 Antiembolic Devices [RC] PER UNIT ROUTINE Notify Provider Consults [RC] ASDIRECTED 04/05/17 09:00 Aspirin [Halfprin] 81 mg PO DAILY Levothyroxine [Synthroid] 300 mcg PO DAILY 04/05/17 Breakfast [employer] Diet [DIET] 04/06/17 05:11 BMP [BASIC METABOLIC PANEL,BMP] [CHEM] AM CBC WITH AUTO DIFF [HEME] AM 04/07/17 05:11 BMP [BASIC METABOLIC PANEL,BMP] [CHEM] AM - Plan Plan:: 47 yo male s/p right calcaneal fx repair with pmh of type I diabetes, htn, hld, hypothyroidism. Calcaneal fx: Dr. Red surgeon. Patient is nonweight bearing. Will have dressing changed by Dr. Red this evening and will determine if patient can go home. Diabetes: Has been controlled. Glucose checks hourly. On home insulin pump Htn/Hld: Stable restart home meds. Hypothyroid: Stable restart home meds. VTE: post-surgical SCD as per Dr. Red Dispo: Possible discharge this evening.
[2017-04-05] MEDS ORDERED: Aspirin 81 MG Tab.EC PO SCH (09:00)
[2017-04-05] MEDS ORDERED: Levothyroxine 100 MCG Tab PO SCH (09:00)
[2017-04-05] MEDS ORDERED: HYDROmorphone 1 MG/ML Syringe IVPUSH PRN (11:36)
--- NOTE | 2017-04-05 12:31 | PCM48HPAN ---
Post Anesthesia Note - EVALUATION WITHIN 48HRS OF ANESTHETIC Vital Signs in Normal Range: Yes Patient Participated in Evaluation: Yes Respiratory Function Stable: Yes Airway Patent: Yes Cardiovascular Function Stable: Yes Hydration Status Stable: Yes Pain Control Satisfactory: Yes Nausea and Vomiting Control Satisfactory: Yes Mental Status Recovered: Yes
[2017-04-05] MEDS ORDERED: Lidocaine 1% 50 ML MDV INJECT ONE (18:19)
--- NOTE | 2017-04-05 18:44 | PCM.DCSUM1 ---
Discharge Summary - Hospital Course HPI Initial Comments: 47 yo male admitted 04/04/16 for calcaneal fracture post op with pmh of type I diabetes, htn, hyperlipidemia, hypothyroidism and bph. Brief History: Patient had a calcaneal fx repaired on evening of admission by Dr. Red. He was observed overnight for pain control and glucose monitoring. When initially seen he denied any pain while in the PACU. He pain was well controlled with Dilaudid IV for breakthrough and [place] 10 which he was tolerating without dilaudid on day of discharge. He is a type I diabetic diagnosed in the early . He does have an insulin pump that he uses to regulate his sugars. He also has a history of htn, hyperlipidemia, and hypothyroidism that he states has been well controlled. Patient's blood sugars were monitored on an hourly basis and should no significant problems throughout his stay. - Discharge Data Discharge Date: 04/05/17 Discharge Disposition: Home, Self-Care 01 Condition: Good - Discharge Diagnosis/Problem(s) (1) Type I diabetes mellitus SNOMED Code(s): 32417997 ICD Code: E10.9 - TYPE 1 DIABETES MELLITUS WITHOUT COMPLICATIONS Status: Chronic Priority: Low Current Visit: Yes Qualifiers: Diabetes mellitus complication status: without complication Qualified Code( s): E10.9 - Type 1 diabetes mellitus without complications (2) HTN (hypertension) SNOMED Code(s): 32507691 ICD Code: I10 - ESSENTIAL (PRIMARY) HYPERTENSION Status: Chronic Priority : Low Current Visit: Yes Qualifiers: Hypertension type: essential hypertension Qualified Code(s): I10 - Essential (primary) hypertension (3) Hyperlipidemia SNOMED Code(s): 93748108 ICD Code: E78.5 - HYPERLIPIDEMIA, UNSPECIFIED Status: Chronic Priority: Low Current Visit: Yes Qualifiers: Hyperlipidemia type: unspecified Qualified Code(s): E78.5 - Hyperlipidemia , unspecified (4) Hypothyroidism SNOMED Code(s): 13250875 ICD Code: E03.9 - HYPOTHYROIDISM, UNSPECIFIED Status: Chronic Priority: Low Current Visit: Yes Qualifiers: Hypothyroidism type: unspecified Qualified Code(s): E03.9 - Hypothyroidism , unspecified (5) Calcaneus fracture, right SNOMED Code(s): 144540556 ICD Code: S92.001A - UNSP FRACTURE OF RIGHT CALCANEUS, INIT FOR CLOS FX Status: Acute Priority: High Current Visit: Yes Qualifiers: Encounter type: initial encounter Fracture type: closed [place]orton Fracture Type: unspecified configuration - Patient Summary/Data Operative Procedure(s) Performed: ORIF calcanceal fracture right foot Consults: Consultations 04/04/17 21:12 Consult to Physician [CONS] Routine - Patient Instructions Diet: Heart Healthy Diet, Diabetic Diet Activity: Rest and Relax Today Driving: Do Not Drive Wound/Incision Care: Keep Operative Site/Wound Site Clean and Dry Notify Provider of: Fever, Increased Pain, Swelling and Redness, Drainage, Nausea and/or Vomiting Other/Special Instructions: Follow-up with Dr. Red. Take medications as perscribed. Return to ED if worsening symptoms. - Discharge Plan Home Medications: Home Meds Rosuvastatin Calcium [Crestor] 40 mg PO DAILY 03/17/17 [History] Aspirin [[place] Aspirin] 81 mg PO DAILY 04/03/17 [History] Levothyroxine Sodium 300 mcg PO DAILY 04/03/17 [History] Multivitamin [Multivitamins] 1 tab PO BEDTIME 04/03/17 [History] Insulin Aspart [NovoLOG] 0 units SUBCUT .PER INSULIN PUMP 04/05/17 [History] Insulin Pump Cartridge [Omnipod] 0 units .XX DAILY 04/05/17 [History] - Discharge Summary/Plan Comment DC Time >30 min.: Yes Discharge Summary/Plan Comment: 47 yo male admitted 04/04/16 for calcaneal fracture post op with pmh of type I diabetes, htn, hyperlipidemia, hypothyroidism and bph. Patient had a calcaneal fx repaired on evening of admission by Dr. Red. He was observed overnight for pain control and glucose monitoring. When initially seen he denied any pain while in the PACU. He pain was well controlled with Dilaudid IV for breakthrough and [place] 10 which he was tolerating without dilaudid on day of discharge. He is a type I diabetic diagnosed in the early . He does have an insulin pump that he uses to regulate his sugars. He also has a history of htn, hyperlipidemia, and hypothyroidism that he states has been well controlled. Patient's blood sugars were monitored on an hourly basis and should no significant problems throughout his stay. On day of discharge patient was sent home with follow-up instruction by Dr. Red as well as pain medication. He was instructed to return to the ED if he had hand worsening pain, swelling, purulent drainage, erythema, or other signs of infection. - Patient Data Vitals - Most Recent: Last Vital Signs Temp 96.5 F 04/05/17 16:33 Pulse 73 04/05/17 16:33 Resp 20 04/05/17 16:33 BP 136/80 04/05/17 16:33 Pulse Ox 95 04/05/17 16:33 Weight - Most Recent: 129.274 kg I&O - Last 24 hours: Intake & Output 04/05/17 04/05/17 04/05/17 06:59 14:59 22:59 Intake Total 250 1550 Output Total 1900 1400 Balance -1650 150 Lab Results - Last 24 hrs: Laboratory Results - last 24 hr 04/04/17 04/04/17 04/05/17 Range/Units 19:59 21:02 06:21 WBC 11.85 H (4.0-11.0) K/uL RBC 4.74 (4.50-5.90) M/uL Hgb 13.5 (13.0-17.0) g/dL Hct 40.2 (38.0-50.0) % MCV 84.8 (80.0-98.0) fL MCH 28.5 (27.0-32.0) pg MCHC 33.6 (31.0-37.0) g/dL RDW Std Deviation 40.0 (28.0-62.0) fl RDW Coeff of Abdi 13 (11.0-15.0) % Plt Count 246 (150-400) K/uL MPV 9.10 (7.40-12.00) fL Neut % (Auto) 78.1 (48.0-80.0) % Lymph % (Auto) 11.6 L (16.0-40.0) % [place] % (Auto) 10.2 (0.0-15.0) % Eos % (Auto) 0.0 (0.0-7.0) % Baso % (Auto) 0.1 (0.0-1.5) % Neut # (Auto) 9.3 H (1.4-5.7) K/uL Lymph # (Auto) 1.4 (0.6-2.4) K/uL [place] # (Auto) 1.2 H (0.0-0.8) K/uL Eos # (Auto) 0.0 (0.0-0.7) K/uL Baso # (Auto) 0.0 (0.0-0.1) K/uL Nucleated RBC % 0.0 /100WBC Nucleated RBCs # 0 K/uL POC Glucose 268 H 278 H (60-110) mg/dL 04/05/17 Range/Units 07:23 WBC (4.0-11.0) K/uL RBC (4.50-5.90) M/uL Hgb (13.0-17.0) g/dL Hct (38.0-50.0) % MCV (80.0-98.0) fL MCH (27.0-32.0) pg MCHC (31.0-37.0) g/dL RDW Std Deviation (28.0-62.0) fl RDW Coeff of Abdi (11.0-15.0) % Plt Count (150-400) K/uL MPV (7.40-12.00) fL Neut % (Auto) (48.0-80.0) % Lymph % (Auto) (16.0-40.0) % [place] % (Auto) (0.0-15.0) % Eos % (Auto) (0.0-7.0) % Baso % (Auto) (0.0-1.5) % Neut # (Auto) (1.4-5.7) K/uL Lymph # (Auto) (0.6-2.4) K/uL [place] # (Auto) (0.0-0.8) K/uL Eos # (Auto) (0.0-0.7) K/uL Baso # (Auto) (0.0-0.1) K/uL Nucleated RBC % /100WBC Nucleated RBCs # K/uL POC Glucose 150 H (60-110) mg/dL Med Orders - Current: Current Medications Acetaminophen (Tylenol) 650 mg PO Q4H PRN PRN Reason: Pain (Mild 1-3)/fever Hydrocodone Bitart/Acetaminophen ([place] 325-5 Mg) 2 tab PO Q4H PRN PRN Reason: Pain (moderate 4-6) Last Admin: 04/05/17 16:07 Dose: 2 tab Aspirin (Halfprin) 81 mg PO DAILY [facility] Last Admin: 04/05/17 09:10 Dose: 81 mg Hydromorphone HCl (Dilaudid) 1 mg IVPUSH Q2H PRN PRN Reason: Pain Last Admin: 04/05/17 13:08 Dose: 1 mg Lactated Ringer's (Ringers, Lactated) 1,000 mls @ 100 mls/hr IV ASDIRECTED [facility] Levothyroxine Sodium (Synthroid) 300 mcg PO DAILY [facility] Last Admin: 04/05/17 09:10 Dose: 300 mcg Magnesium Hydroxide (Milk Of Magnesia) 30 ml PO Q12H PRN PRN Reason: Constipation Multivitamins/Minerals (Thera M Plus) 1 tab PO BEDTIME [facility] Last Admin: 04/04/17 22:36 Dose: 1 tab Ondansetron HCl (Zofran Odt) 4 mg PO Q4H PRN PRN Reason: nausea, able to take PO Ondansetron HCl (Zofran) 4 mg IVPUSH Q4H PRN PRN Reason: Nausea Rosuvastatin Calcium (Crestor) 40 mg PO BEDTIME [facility] Last Admin: 04/04/17 22:36 Dose: 40 mg Discontinued Medications Bupivacaine HCl (Marcaine 0.5%) Confirm Administered Dose 30 ml .ROUTE .STK-MED ONE Stop: 04/04/17 07:22 Cefazolin Sodium (Ancef) Confirm Administered Dose 2 gm .ROUTE .STK-MED ONE Stop: 04/04/17 18:44 Dexamethasone (Dexamethasone) Confirm Administered Dose 20 mg .ROUTE .STK-MED ONE Stop: 04/04/17 11:37 Diphenhydramine HCl (Benadryl) Confirm Administered Dose 50 mg .ROUTE .STK-MED ONE Stop: 04/04/17 11:37 Fentanyl (Sublimaze) Confirm Administered Dose 250 mcg .ROUTE .STK-MED ONE Stop: 04/04/17 11:38 Fentanyl (Sublimaze) 50 mcg IVPUSH Q5M PRN PRN Reason: Pain (severe 7-10) Stop: 04/04/17 23:59 Hydromorphone HCl (Dilaudid) Confirm Administered Dose 2 mg .ROUTE .STK-MED ONE Stop: 04/04/17 14:19 Hydromorphone HCl (Dilaudid) Confirm Administered Dose 2 mg .ROUTE .STK-MED ONE Stop: 04/04/17 17:14 Hydromorphone HCl (Dilaudid) 0.5 mg IVPUSH Q2H PRN PRN Reason: Pain (severe 7-10) Last Admin: 04/05/17 09:25 Dose: 0.5 mg Cefazolin Sodium/Dextrose 2 gm (/ Premix) 50 mls @ 100 mls/hr IV ONETIME ONE Stop: 04/04/17 11:53 Last Admin: 04/04/17 22:36 Dose: Not Given Lidocaine HCl (Xylocaine 1%) Confirm Administered Dose 20 ml .ROUTE .STK-MED ONE Stop: 04/04/17 07:22 Lidocaine HCl (Xylocaine 1%) 5 ml INJECT ONETIME ONE Stop: 04/05/17 18:20 Midazolam HCl (Versed 1 Mg/Ml) Confirm Administered Dose 2 mg .ROUTE .STK-MED ONE Stop: 04/04/17 11:37 Ondansetron HCl (Zofran) Confirm Administered Dose 4 mg .ROUTE .STK-MED ONE Stop: 04/04/17 11:37 Propofol (Diprivan 20 Ml) Confirm Administered Dose 200 mg .ROUTE .STK-MED ONE Stop: 04/04/17 11:37 Propofol (Diprivan 20 Ml) Confirm Administered Dose 200 mg .ROUTE .STK-MED ONE Stop: 04/04/17 16:33 Rocuronium [place] (Zemuron) Confirm Administered Dose 100 mg .ROUTE .STK-MED ONE Stop: 04/04/17 12:49 Succinylcholine Chloride (Succinylcholine In Ns Pf) Confirm Administered Dose 200 mg .ROUTE .STK-MED ONE Stop: 04/04/17 12:49 *Q Meaningful Use (DIS) - VTE *Q VTE Criteria *Q: - Stroke *Q Stroke Criteria *Q: - AMI *Q AMI Criteria *Q:
--- NOTE | 2017-04-05 19:08 | PCM.CONS ---
H&P History of Present Illness - General Date of Service: 04/05/17 Admit Problem/Dx: Admission Diagnosis/Problem Admission Diagnosis/Problem Fracture of calcaneus Source of Information: Patient, Old Records History Limitations: Reports: No Limitations - History of Present Illness Onset of Symptoms: Reports: Sudden Symptom Onset Date: 03/17/17 Duration of Symptoms: Reports: Constant Location: Reports: Lower Extremity, Right Quality: Reports: Throbbing Improves with: Reports: None Worsens with: Reports: None Context: Reports: Trauma Associated Symptoms: Reports: No Other Symptoms Right Feet Pain Score (Numeric/FACES): 3 - Related Data Allergies/Adverse Reactions: Allergies Allergy/AdvReac Type Severity Reaction Status Date / Time No Known Allergies Allergy Verified 04/05/17 08:38 Home Medications: Home Meds Rosuvastatin Calcium [Crestor] 40 mg PO DAILY 03/17/17 [History] Aspirin [[place] Aspirin] 81 mg PO DAILY 04/03/17 [History] Levothyroxine Sodium 300 mcg PO DAILY 04/03/17 [History] Multivitamin [Multivitamins] 1 tab PO BEDTIME 04/03/17 [History] Insulin Aspart [NovoLOG] 0 units SUBCUT .PER INSULIN PUMP 04/05/17 [History] Insulin Pump Cartridge [Omnipod] 0 units .XX DAILY 04/05/17 [History] Past Medical History Cardiovascular History: Reports: High Cholesterol, Hypertension Genitourinary History: Reports: Prostate Disorder Musculoskeletal History: Reports: Other (See Below) Other Musculoskeletal History: presently has fx rt foot Neurological History: Reports: Seizure Endocrine/Metabolic History: Reports: Diabetes, Type I, Hypothyroidism - Infectious Disease History Infectious Disease History: Reports: Chicken Pox - Past Surgical History Head Surgeries/Procedures: Reports: None Male Surgical History: Reports: Other (See Below) Other Male Surgeries/Procedures: hx prostate bx Other Endocrine Surgeries/Procedures: Diabetic since age 22, has Insulin pump Dermatological Surgical History: Reports: Other (See Below) Social & Family History - Family History Family Medical History: Noncontributory Cardiac: Reports: High Cholesterol, Hypertension Other Cardiac Family History: mother Respiratory: Reports: Asthma Other Respiratory Family Hisory: mother Psychiatric: Reports: Depression Other Psychiatric Family History: father Dermatologic: Reports: None Oncologic: Reports: Colon Other Oncologic Family History: mother - Tobacco Use Smoking Status *Q: Never Smoker - Caffeine Use Caffeine Use: Reports: None - Alcohol Use Days Per Week of Alcohol Use: 1 Number of Drinks Per Day: 5 Total Drinks Per Week: 5 - Recreational Drug Use Recreational Drug Use: No Drug Use in Last 12 Months: No H&P Review of Systems - Review of Systems: Review Of Systems: See Below General: Reports: No Symptoms HEENT: Reports: No Symptoms Pulmonary: Reports: No Symptoms Cardiovascular: Reports: No Symptoms Gastrointestinal: Reports: No Symptoms Genitourinary: Reports: No Symptoms Musculoskeletal: Reports: No Symptoms Skin: Reports: No Symptoms Psychiatric: Reports: No Symptoms Neurological: Reports: No Symptoms Hematologic/Lymphatic: Reports: No Symptoms Immunologic: Reports: No Symptoms Exam - Exam Exam: See Below - Vital Signs Vital Signs: Last Vital Signs Temp 35.8 C 04/05/17 16:33 Pulse 73 04/05/17 16:33 Resp 20 04/05/17 16:33 BP 136/80 04/05/17 16:33 Pulse Ox 95 04/05/17 16:33 Weight: 129.274 kg - Exam Peripheral Pulses: 1+: Posterior Tibial (R), Dorsalis Pedis (R) Skin: Warm, Dry, Intact - Patient Data Lab Results Last 24 hrs: Laboratory Results - last 24 hr 04/04/17 04/04/17 04/05/17 Range/Units 19:59 21:02 06:21 WBC 11.85 H (4.0-11.0) K/uL RBC 4.74 (4.50-5.90) M/uL Hgb 13.5 (13.0-17.0) g/dL Hct 40.2 (38.0-50.0) % MCV 84.8 (80.0-98.0) fL MCH 28.5 (27.0-32.0) pg MCHC 33.6 (31.0-37.0) g/dL RDW Std Deviation 40.0 (28.0-62.0) fl RDW Coeff of Abdi 13 (11.0-15.0) % Plt Count 246 (150-400) K/uL MPV 9.10 (7.40-12.00) fL Neut % (Auto) 78.1 (48.0-80.0) % Lymph % (Auto) 11.6 L (16.0-40.0) % [place] % (Auto) 10.2 (0.0-15.0) % Eos % (Auto) 0.0 (0.0-7.0) % Baso % (Auto) 0.1 (0.0-1.5) % Neut # (Auto) 9.3 H (1.4-5.7) K/uL Lymph # (Auto) 1.4 (0.6-2.4) K/uL [place]ess # (Auto) 1.2 H (0.0-0.8) K/uL Eos # (Auto) 0.0 (0.0-0.7) K/uL Baso # (Auto) 0.0 (0.0-0.1) K/uL Nucleated RBC % 0.0 /100WBC Nucleated RBCs # 0 K/uL POC Glucose 268 H 278 H (60-110) mg/dL 04/05/17 Range/Units 07:23 WBC (4.0-11.0) K/uL RBC (4.50-5.90) M/uL Hgb (13.0-17.0) g/dL Hct (38.0-50.0) % MCV (80.0-98.0) fL MCH (27.0-32.0) pg MCHC (31.0-37.0) g/dL RDW Std Deviation (28.0-62.0) fl RDW Coeff of Abdi (11.0-15.0) % Plt Count (150-400) K/uL MPV (7.40-12.00) fL Neut % (Auto) (48.0-80.0) % Lymph % (Auto) (16.0-40.0) % Ness % (Auto) (0.0-15.0) % Eos % (Auto) (0.0-7.0) % Baso % (Auto) (0.0-1.5) % Neut # (Auto) (1.4-5.7) K/uL Lymph # (Auto) (0.6-2.4) K/uL Ness # (Auto) (0.0-0.8) K/uL Eos # (Auto) (0.0-0.7) K/uL Baso # (Auto) (0.0-0.1) K/uL Nucleated RBC % /100WBC Nucleated RBCs # K/uL POC Glucose 150 H (60-110) mg/dL Result Diagrams: 04/05/17 06:21 Consult PN Assessment/Plan POD#: 1 Procedures: Procedures CT UPPER EXTREMITY W/O DYE (06/15/15) EMERGENCY DEPT VISIT (03/17/17) X-RAY EXAM OF ANKLE (03/17/17) X-RAY EXAM OF FOOT (03/17/17) (1) Calcaneus fracture, right SNOMED Code(s): 317811410 Code(s): S92.001A - UNSP FRACTURE OF RIGHT CALCANEUS, INIT FOR CLOS FX Priority: High Current Visit: Yes Comment: Patient is status post ORIF right displaced intraarticular calcaneal fracture right foot. Edema to site is moderate. Bleeding is minimal. Sutures are intact. Skin is well coapted. Andrew drain is in place. Qualifiers: Encounter type: subsequent encounter Fracture type: closed [place] Fracture Type: unspecified configuration Problem List Initiated/Reviewed/Updated: Yes Plan: 1. Dressings removed from right lower extremity. 2. [place] drain pulled from right foot. 3. Incision site for andrew drain sutured with 1 3-0 ethilon suture after betadine scrub. 4. Surgery site cleaned with dabbing of saline soaked gauze. 5. betadine soaked xeroform gauze applied over incision sites, followed by fluff gauze, kerlix rolls, cast padding rolls, stockinette, posterior splint and 3 ivania bandages to secure splint and dressings without added compression. 6. Patient being discharged tonight with instructions to maintain strict non- weight bearing to right lower extremity using crutches in his possession in room , or other mode such as wheel chair. Patient has prior script for pain medication as necessary. Patient and agree to followup in my office on 04/08. Both maintain my cell phone for questions or concerns as they may arise.
--- NOTE | 2017-04-07 09:59 | CR ---
EXAMINATION: Right calcaneus HISTORY: ORIF COMPARISON: 03/17/2017 TECHNIQUE: 2 views FINDINGS/IMPRESSION: Operative control films demonstrate screw and plate fixation of a calcaneal frac ture in good position and alignment.
--- NOTE | 2017-04-07 11:59 | PN ---
DATE OF SURGERY: April 04, 2017. PREOPERATIVE DIAGNOSIS: Intraarticular displaced fracture of the calcaneus of the right foot. PLANNED PROCEDURE: Open reduction with internal fixation of fracture of calcaneus, right foot. CONSENT: Signed and in the chart. ANESTHESIA: General. The patient confirms n.p.o. since midnight. History and physical was completed by KIYA Barron, and Dr. Josh Garcia, with no contraindications to surgery. ALLERGIES: The patient has no known allergies. CURRENT MEDICATIONS: 1. Acetaminophen 500 mg oral tablet as needed every 6 hours. 2. Multivitamin tablet once daily. 3. NovoLog insulin, aspart, 100 unit/mL solution, inject up to 65 units subcutaneously daily as needed. 4. Levothyroxine 300 mcg one tablet daily. 5. Crestor 40 mg one tablet daily. 6. Ibuprofen 800 mg one tablet by mouth as needed, up to 3 times per day for pain. 7. Aspirin 81 mg oral tablet one tablet daily. PAST MEDICAL HISTORY: Current active medical conditions include: 1. Insulin-dependent diabetes. 2. Hypertension. 3. Dyslipidemia. 4. Hypothyroidism. 5. Bladder growth, status post biopsies. 6. Benign prostatic hyperplasia. 7. 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 8. Seizure disorder. 9. Obesity. PAST SURGICAL HISTORY: 1. Debridement of cellulitis on the abdomen. 2. Right breast nodule biopsy. 3. Gastroscopy. 4. Cystoscopy with biopsy. SOCIAL HISTORY: The patient is . He is a nonsmoker. 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 Drinks minimally and denies any illicit drug use. ANAYA / AMRITA /[id number] ADDENDUM: LABORATORY DATA: PTT was 23 on 03/27/2017. Prothrombin time 8.7, INR 0.9. White blood cell 8.0, red blood cells 5.17, hemoglobin 15.1, hematocrit 42.1, platelets 308,000. Urinalysis was unremarkable. Glucose 75, creatinine 0.96, BUN 21.0, sodium 140.1, potassium 4.2, chloride 101.3, CO2 of 26.1, calcium 9.10. Also the patient's most recent glucose check done on last treatment was approximately 100. Chest x-ray showed no radiographic evidence of an acute cardiopulmonary process. EKG showed sinus rhythm, rapid. PLAN: The patient presents for open reduction with internal fixation as a surgery for a displaced intraarticular calcaneal fracture on the right foot today. No contraindications to surgery noted. No guarantees were given or implied, and an effort has been made to thoroughly discuss likelihood and the potential complications with the patient and with his . ANAYA CROWE /[id number]
== END 2017-04-05 19:55 | disposition home or self-care (01) ==
LOC: MW.SDS 11:21 → MW.MS 21:12 → UNDOADMOB 23:09
PROVIDERS: ADMIT Family Medicine; ATTEND Family Medicine
DX: S92.061A Displaced intraarticular fracture of right calcaneus, initial encounter for closed fracture (principal); I10 Essential (primary) hypertension; E10.9 Type 1 diabetes mellitus without complications; E03.9 Hypothyroidism, unspecified; E78.5 Hyperlipidemia, unspecified; Z79.82 Long term (current) use of aspirin; Z79.4 Long term (current) use of insulin; Z79.899 Other long term (current) drug therapy; X58.XXXA Exposure to other specified factors, initial encounter
CPT/HCPCS: 28415; 36415; 76001; 82962; 85025; A9270; J0690; J1100; J1170; J1200; J2250; J2405; J3010; 01480; 96374; C1713; G0378; J2704